=== PATIENT | male | born 1940 | race Caucasian/White ===

== ENCOUNTER → 2017-11-30 | Outpatient (CLI) | payer OTHER, MEDICARE | LOC: RAD 01:35 | DX: N64.4 Mastodynia (principal); R92.8 Other abnormal and inconclusive findings on diagnostic imaging of breast ==

== ENCOUNTER → 2019-03-20 | Outpatient (CLI) | payer OTHER, MEDICARE ==
[~2019-03-20] VITALS: Ht 188 cm; Wt 104.3 kg
[~2019-03-20] MED LIST: ASPIRIN300 MG PO; BRINTELLIX20 MG PO; LIPITOR40 MG PO; REMERON15 MG PO; SYNTHROID100 MC1 PO; XANAX 0.25 MG0.25 MG PO; ZOLPIDEM TARTRA10 MG PO
[2019-03-20 10:07] VITALS: BP 111/65
[2019-03-20 10:11] LABS: HEMATOCRIT 40.6 % (42.0-52.0); HEMOGLOBIN 13.7 gm/dL (14.0-18.0); MCH 32.1 pg (26.0-34.0); MCHC 33.8 g/dL (28.0-37.0); MCV 94.9 fL (80.0-100.0); RBC 4.28 mil/uL (4.50-6.00); RDW 14.2 % (10.5-14.5); WBC 5.3 thou/uL (4.0-11.0)
[2019-03-20 10:19] LABS: CALCIUM 9.4 mg/dL (8.5-10.1); CREATININE 1.3 mg/dL (0.7-1.3); POTASSIUM 4.3 mmol/L (3.5-5.1)
[2019-03-20 10:27] LABS: PROTIME 10.7 Seconds (9.3-11.4)
--- NOTE | 2019-03-20 16:38 | CATHLAB ---
[facility] [address] INVASIVE PROCEDURE REPORT Name: NATHAN HANEY Room #: REG CL [facility]#: [id number] ������������� Admission: 03/20/19 ������������� Attend Phys: Moise Mederos MD Discharge: ��� ������������� ��� Date of : 38 Date of Service: 03/20/19 1638 �� Report #: [id number] �������� ��������������������������������������������[id number] THIS REPORT FOR: //name// APPROVED REPORT Study performed: 03/20/2019 11:09:35 Patient Details The patient is a 79 year-old male Event Personnel Moise Mederos Composer Teaching Artist, Angela Harris RTR, HEAD OF CONSERVATION Monitor, Rashi Gomez RTR Monitor, Srinivasa Walls RTR Maiub, Mason Kim powder worker tnt Performed Left Heart Cath w/or w/o Coronaries [id number] [facility] Indication Dyspnea, Chest pain Risk Factors HypercholesterolemiaPhysical Activity, Coronary Artery Disease Procedure Narrative The Right Wrist^ was infiltrated with 1% Lidocaine subcutaneous anesthesia. A TRANSRADIAL SLENDER 6F GLIDESHEATH KIT #[id number] sheath was inserted into the Right Radial Artery^. Coronary angiography was performed using coronary diagnostic catheters. The right coronary system was accessed and visualized with a JR4 catheter. The left coronary system was accessed and visualized with a JL3.5 catheter. The left ventricle was accessed and visualized with a PIGTAIL catheter. The patient tolerated the procedure well and there were no complications associated with the procedure. There was no hematoma. Intraoperative Conscious Sedation Sedation start time: 1218 Case end Time: 1248 Fentanyl 25 mcg Versed 1.5 mg Fluoro Time: 6.20 minutes Dose: DAP 5995.40 cGycm2 629 mGy Contrast Type and Amount: Visipaque 45 ml [facility] [place] [place] [address] INVASIVE PROCEDURE REPORT Name: NATHAN HANEY Room #: REG [facility]#: [id number] ������������� Admission: 03/20/19 ������������� Attend Phys: Moise Mederos MD Discharge: ��� ������������� ��� Date of : 38 Date of Service: 03/20/19 1638 �� Report #: [id number] �������� ��������������������������������������������[id number] Coronary Angiography The patient's coronary anatomy is right dominant. Diagnostic Cath Left Main This is a large caliber vessel, appears to be patent with no flow-limiting lesions. LAD The proximal segment is mildly calcified with mild disease, 20%. The LAD traverses the anterior wall and terminates at the apex. Diagonal 1 This is a small-caliber vessel, patent with no flow-limiting lesions. Diagonal 2 This is a small-caliber vessel, patent with no flow-limiting lesions. Circumflex This is a moderate size caliber vessel, supplies one obtuse marginal artery. There is mild disease in the proximal segment, less than 20%. OM1 This is a moderate size caliber vessel, patent with no flow-limiting lesions. Right Coronary This is a moderate to large caliber vessel, dominant as it supplies the PDA. There is a moderate stenosis in the mid segment, 40-50%. R PDA This is a moderate size caliber vessel, patent with no flow-limiting lesions. RPLV This is a moderate size caliber vessel, patent with no flow-limiting lesions. Left Ventriculography The left ventricle is normal in size with normal contractility. The left ventricular ejection fraction is estimated to be 55-60%. Hemodynamics The aortic pressure is 95/57 mmHg with a mean of 73 mmHg. The left ventricular pressure is 88/8 mmHg with a mean of mmHg. The left ventricular end diastolic pressure is 18 mmHg. Conclusion 1. There is mild to moderate disease in the LAD, left circumflex artery and RCA. 2. There is normal LV systolic function. 3. Recommend aggressive risk factor management. ��������������������������������������������� <ELECTRONICALLY SIGNED> ���������������������������������������� By: Moise Mederos MD ��������������������������������������������� 03/20/19 1638 1638 1638 Moise Mederos MD /INF
--- NOTE | 2019-03-21 07:44 | EKG ---
[place] [address] [place] [address] ELECTROCARDIOGRAM REPORT Name: NATHAN HANEY [facility] #: [id number] ������������������ Admission: 03/20/19 ������������������ Attend Phys: Moise Mederos MD Discharge: ������������������ Date of : 38 Report #: [id number] ����������������������������������������������������������������� [id number] THIS REPORT FOR: //name// [facility] Test Date: 2019-03-20 Test Time: 10:00:39 Pat Name: NATHAN HANEY Department: Room: Gender: Human Resource Assistant: Candy BARTON : 1940 Requested By: Moise Mederos Order Number: [id number] MD: Chang Yi Measurements Intervals [place] Rate: 59 P: -14 VA: 229 QRS: 50 QRSD: 133 T: 28 QT: 427 QTc: 423 Interpretive Statements Sinus rhythm Prolonged VA interval Right bundle branch block Compared to ECG 08/18/2002 13:16:34 First degree AV block now present Right bundle-branch block now present Electronically Signed On 03-21-2019 7:44:03 CDT by Chang Yi [email or web address] ��������������������������������������������� <ELECTRONICALLY SIGNED> ���������������������������������������� By: Chang Yi MD, [facility] ��������������������������������������������� 03/21/19 0744 1000 1000 Chang Yi MD, [facility] /EPI
== END | disposition home or self-care (01) ==
LOC: CATH 09:30
PROVIDERS: Internal Medicine Cardiovascular Disease
DX: I25.10 Atherosclerotic heart disease of native coronary artery without angina pectoris (principal); E78.00 Pure hypercholesterolemia, unspecified; E78.5 Hyperlipidemia, unspecified; E03.9 Hypothyroidism, unspecified; F32.9 Major depressive disorder, single episode, unspecified; Z87.891 Personal history of nicotine dependence; Z85.46 Personal history of malignant neoplasm of prostate; Z86.718 Personal history of other venous thrombosis and embolism; Z79.01 Long term (current) use of anticoagulants; Z98.890 Other specified postprocedural states; Z79.899 Other long term (current) drug therapy; Z79.82 Long term (current) use of aspirin

== ENCOUNTER → 2019-05-02 | Outpatient (CLI) | payer OTHER, MEDICARE | LOC: RAD 13:55 | DX: J84.10 Pulmonary fibrosis, unspecified (principal) ==

== ENCOUNTER → 2019-05-09 | Outpatient (CLI) | payer OTHER, MEDICARE ==
[2019-05-09 09:34] LABS: CREATININE 1.3 mg/dL (0.7-1.3)
== END ==
LOC: CAT 08:52
PROVIDERS: Internal Medicine
DX: I25.10 Atherosclerotic heart disease of native coronary artery without angina pectoris (principal); C61 Malignant neoplasm of prostate

== ENCOUNTER → 2019-05-25 | Outpatient (CLI) | payer OTHER, MEDICARE ==
--- NOTE | 2019-05-25 09:58 | 2DMMODE ---
[facility] [place] [address] 2 D/M-MODE ECHOCARDIOGRAM Name: MEDINANATHAN THORNTONNTON Room #: REG CL [facility]#: [id number] Admission: 05/25/19 Attend Phys: Carlos Monterroso, Discharge: Date of : 38 Report #: [id number] THIS REPORT FOR: //name// APPROVED REPORT Study performed: 05/25/2019 08:31:13 EXAM: Comprehensive 2D, Doppler, and color-flow Echocardiogram Patient Location: Out-Patient Status: routine BSA: 2.35 HR: 62 bpm BP: 114/70 mmHg Rhythm: NSR Other Information Study Quality: Adequate Indications Cough, chest pain, short of breath. Hx: HLP. 2D Dimensions RVDd: 39.45 mm IVSd: 8.86 (7-11mm) LVDd: 43.75 mm PWd: 9.16 (7-11mm) Ascending Ao: 34.33 (22-36mm) LVDs: 30.46 (25-40mm) Aortic Root: 34.97 mm Volumes Left Atrial Volume (Systole) Single Plane 4CH: 42.04 mL Single Plane 2CH: 49.16 mL LA ESV Index: 21.00 mL/m2 Aortic Valve AoV Peak Samm.: 1.56 m/s AO Peak Gr.: 9.77 mmHg LVOT Max P.06 mmHg LVOT Max V: 1.42 m/s Mitral Valve E/A Ratio: 1.4 MV Decel. Time: 237.29 ms MV E Max Samm.: 0.76 m/s MV A Samm.: 0.54 m/s [facility] [address] [place] [address] 2 D/M-MODE ECHOCARDIOGRAM Name: MEDINANATHAN THORNTONNTON Room #: REG CL [facility]#: [id number] Admission: 05/25/19 Attend Phys: Carlos Monterroso, Discharge: Date of : 38 Report #: [id number] MV PHT: 68.81 ms IVRT: 83.04 ms Pulmonary Valve PV Peak Samm.: 0.85 m/s PV Peak Gr.: 2.86 mmHg Pulmonary Vein P Vein S: 0.56 m/s P Vein A: 0.32 m/s P Vein D: 0.55 m/s P Vein A Dur.: 143.0 msec P Vein S/D Ratio: 1.02 Tricuspid Valve TR Peak Samm.: 2.82 m/s RAP Estimate: 5.00 mmHg TR Peak Gr.: 32.00 mmHg PA Pressure: 37.00 mmHg Left Ventricle The left ventricle is normal size. There is normal LV segmental wall motion. There is normal left ventricular wall thickness. Left ventricular systolic function is normal. LVEF is 55-60%. The left ventricular diastolic function is normal. Right Ventricle The right ventricle is normal size. The right ventricular systolic function is normal. Atria The left atrium size is normal. Probable small PFO noted with color doppler. The right atrium size is normal. Aortic Valve The aortic valve is normal in structure. No aortic regurgitation is present. There is no aortic valvular stenosis. Mitral Valve The mitral valve is normal in structure. Trace mitral regurgitation. No evidence of mitral valve stenosis. Tricuspid Valve The tricuspid valve is normal in structure. Mild tricuspid regurgitation. Estimated PAP is 35-40mmHg. Pulmonic Valve The pulmonary valve is normal in structure. There is no pulmonic valvular regurgitation. [facility] [address] [place] [address] 2 D/M-MODE ECHOCARDIOGRAM Name: HANEYNATHAN POWELL Room #: REG CL [facility]#: [id number] Admission: 05/25/19 Attend Phys: Carlos Monterroso, Discharge: Date of : 38 Report #: [id number] Great Vessels The aortic root is normal in size. The ascending aorta is normal in size. IVC is normal in size and collapses >50% with inspiration. Pericardium There is no pericardial effusion. <Conclusion> Left ventricular systolic function is normal. There is normal LV segmental wall motion. LVEF is 55-60%. Probable small PFO noted with color doppler. The aortic valve is normal in structure. No aortic regurgitation or stenosis The mitral valve is normal in structure. Trace mitral regurgitation. Mild tricuspid regurgitation. Estimated pulmonary artery pressure of 35-40mmHg. There is no pericardial effusion. <ELECTRONICALLY SIGNED> By: Chang Yi MD, FACC 05/25/19957 7 7 Chang Yi MD, FACC /INF
== END ==
LOC: CV 08:10
DX: I36.1 Nonrheumatic tricuspid (valve) insufficiency (principal); E78.5 Hyperlipidemia, unspecified

== ENCOUNTER → 2019-06-01 | Outpatient (CLI) | payer OTHER, MEDICARE | LOC: MRI 06:52 | DX: M47.814 Spondylosis without myelopathy or radiculopathy, thoracic region (principal); M41.83 Other forms of scoliosis, cervicothoracic region; R35.0 Frequency of micturition ==

== ENCOUNTER → 2019-10-25 | Outpatient (CLI) | payer OTHER, MEDICARE ==
--- NOTE | 2019-10-25 09:38 | 2DMMODE ---
[facility] [place] [address] 2 D/M-MODE ECHOCARDIOGRAM Name: NATHAN HANEY Room #: REG [facility].#: [id number] Admission: 10/25/19 Attend Phys: Carlos Monterroso MD Discharge: Date of : 38 Report #: [id number] THIS REPORT FOR: cc: Julien Goncalves MD, Stanley P. MD Lammoglia, Francisco J. MD ~ APPROVED REPORT Study performed: 10/25/2019 08:42:56 EXAM: Comprehensive 2D, Doppler, and color-flow Echocardiogram Patient Location: Echo lab Status: routine BSA: 2.35 HR: 69 bpm BP: 120/70 mmHg Rhythm: NSR Other Information Study Quality: Adequate Risk Factors: Cardiac Risk Factors: Hyperlipidemia Indications Pulmonary Hypertension 2D Dimensions IVSd: 9.68 (7-11mm) LVOT Diam: 21.00 (18-24mm) LVDd: 45.26 mm PWd: 9.70 (7-11mm) Ascending Ao: 33.55 (22-36mm) LVDs: 32.28 (25-40mm) Aortic Root: 32.62 mm LV Single Plane 4CH: 57.68 % LV Single Plane 2CH: 51.98 % Volumes Left Atrial Volume (Systole) Single Plane 4CH: 53.81 mL Single Plane 2CH: 67.38 mL LA ESV Index: 29.00 mL/m2 Aortic Valve AoV Peak Samm.: 1.20 m/s [facility] [address] [place] [address] 2 D/M-MODE ECHOCARDIOGRAM Name: MEDINANATHAN SHERRY Room #: REG [facility].#: [id number] Admission: 10/25/19 Attend Phys: Carlos Monterroso, Discharge: Date of : 38 Report #: [id number] AO Peak Gr.: 5.78 mmHg LVOT Max P.79 mmHg LVOT Max V: 0.83 m/s CHAYA Vmax: 2.44 cm2 Mitral Valve E/A Ratio: 1.0 MV Decel. Time: 311.93 ms MV E Max Samm.: 0.62 m/s MV A Samm.: 0.64 m/s MV PHT: 90.46 ms IVRT: 51.90 ms TDI E/Lateral E': 6.20 E/Medial E': 8.86 Medial E' Samm.: 0.07 m/s Lateral E' Samm.: 0.10 m/s Pulmonary Valve PV Peak Samm.: 0.86 m/s PV Peak Gr.: 2.99 mmHg Pulmonary Vein P Vein S: 0.53 m/s P Vein A: 0.30 m/s P Vein D: 0.50 m/s P Vein A Dur.: 103.8 msec P Vein S/D Ratio: 1.06 Tricuspid Valve TR Peak Samm.: 2.81 m/s RAP Estimate: 7.00 mmHg TR Peak Gr.: 31.65 mmHg PA Pressure: 39.00 mmHg Left Ventricle The left ventricle is normal size. There is normal LV segmental wall motion. There is normal left ventricular wall thickness. Left ventricular systolic function is normal. The left ventricular ejection fraction is within the normal range. LVEF is 55-60%. Moderate diastolic dysfunction is present (pseudonormal filling). Right Ventricle The right ventricle is normal size. The right ventricular systolic function is normal. Atria The left atrium size is normal. The right atrium size is normal. [facility] [address] [place] [address] 2 D/M-MODE ECHOCARDIOGRAM Name: NATHAN HANEY Room #: REG [facility]#: [id number] Admission: 10/25/19 Attend Phys: Carlos Monterroso, Discharge: Date of : 38 Report #: [id number] Aortic Valve The aortic valve is normal in structure. No aortic regurgitation is present. There is no aortic valvular stenosis. Mitral Valve The mitral valve is normal in structure. Trace mitral regurgitation. No evidence of mitral valve stenosis. Tricuspid Valve The tricuspid valve is normal in structure. Mild tricuspid regurgitation. Pulmonary artery pressure is 39 mmHg. Pulmonic Valve The pulmonary valve is normal in structure. There is no pulmonic valvular regurgitation. Great Vessels The aortic root is normal in size. The ascending aorta is normal in size. IVC is normal in size and collapses >50% with inspiration. Pericardium There is no pericardial effusion. <Conclusion> The left ventricle is normal size. LVEF is 55-60%. The aortic valve is normal in structure. The mitral valve is normal in structure. Trace mitral regurgitation. The tricuspid valve is normal in structure. Mild tricuspid regurgitation. Pulmonary artery pressure is 39 mmHg. The pulmonary valve is normal in structure. There is no pericardial effusion. <ELECTRONICALLY SIGNED> By: Chava West MD 10/25/1938 6 Chava West MD /INF
== END ==
LOC: CAT 08:15 → CV 17:02
DX: I36.1 Nonrheumatic tricuspid (valve) insufficiency (principal); I25.10 Atherosclerotic heart disease of native coronary artery without angina pectoris; I70.0 Atherosclerosis of aorta; J98.4 Other disorders of lung

== ENCOUNTER → 2020-01-09 | Outpatient (CLI) | payer OTHER, MEDICARE | LOC: SJCVC 10:21 | DX: I44.0 Atrioventricular block, first degree (principal); I45.10 Unspecified right bundle-branch block; R94.31 Abnormal electrocardiogram [ECG] [EKG]; I25.10 Atherosclerotic heart disease of native coronary artery without angina pectoris; E78.00 Pure hypercholesterolemia, unspecified; D68.59 Other primary thrombophilia; R60.9 Edema, unspecified; E03.9 Hypothyroidism, unspecified; E78.5 Hyperlipidemia, unspecified; Z82.49 Family history of ischemic heart disease and other diseases of the circulatory system; Z86.718 Personal history of other venous thrombosis and embolism; Z79.899 Other long term (current) drug therapy; Z79.82 Long term (current) use of aspirin; Z87.891 Personal history of nicotine dependence ==

== ENCOUNTER → 2020-06-23 | Outpatient (CLI) | payer OTHER, MEDICARE | LOC: SJCVCIMAG 08:17 | PROVIDERS: ATTEND Internal Medicine Cardiovascular Disease | DX: I44.0 Atrioventricular block, first degree (principal); I49.3 Ventricular premature depolarization; I25.10 Atherosclerotic heart disease of native coronary artery without angina pectoris; E78.5 Hyperlipidemia, unspecified; Z79.899 Other long term (current) drug therapy; Z87.891 Personal history of nicotine dependence ==

== ENCOUNTER → 2020-10-29 | Outpatient (CLI) | payer OTHER, MEDICARE ==
--- NOTE | 2020-10-29 10:59 | 2DMMODE ---
[facility] [place] [address] 2 D/M-MODE ECHOCARDIOGRAM Name: NATHAN HANEY Room #: REG [facility] Gayathri.#: [id number] Admission: 10/29/20 Attend Phys: Carlos Monterroso MD Discharge: Date of : 38 Report #: [id number] THIS REPORT FOR: cc: Julien Goncalves MD, Stanley P. MD Lundgren, Craig H. MD [facility] ~ APPROVED REPORT Study performed: 10/29/2020 08:21:07 EXAM: Comprehensive 2D, Doppler, and color-flow Echocardiogram Patient Location: Out-Patient Room #: 2 Status: routine BSA: 2.35 HR: 77 bpm BP: 108/64 mmHg Rhythm: NSR Other Information Study Quality: Adequate Indications Dyspnea 2D Dimensions RVDd: 38.88 mm IVSd: 8.83 (7-11mm) LVOT Diam: 18.94 (18-24mm) LVDd: 47.71 mm PWd: 9.23 (7-11mm) Ascending Ao: 33.87 (22-36mm) LVDs: 29.68 (25-40mm) Left Atrium: 39.20 (27-40mm) Aortic Root: 33.55 mm IVC: 14.00 mm Volumes Left Atrial Volume (Systole) Single Plane 4CH: 32.76 mL Single Plane 2CH: 26.43 mL LA ESV Index: 14.00 mL/m2 Aortic Valve AoV Peak Samm.: 1.41 m/s AO Peak Gr.: 7.95 mmHg LVOT Max P.69 mmHg LVOT Max V: 1.19 m/s CHAYA Vmax: 2.38 cm2 [facility] [address] [address] 2 D/M-MODE ECHOCARDIOGRAM Name: NATHAN HANEY Room #: REG [facility]#: [id number] Admission: 10/29/20 Attend Phys: Carlos Monterroso, Discharge: Date of : 38 Report #: [id number] Mitral Valve E/A Ratio: 0.7 MV Decel. Time: 308.99 ms MV E Max Samm.: 0.59 m/s MV A Samm.: 0.90 m/s MV PHT: 89.61 ms IVRT: 115.34 ms Pulmonary Valve PV Peak Samm.: 0.96 m/s PV Peak Gr.: 3.66 mmHg Pulmonary Vein P Vein S: 0.50 m/s P Vein A: 0.31 m/s P Vein D: 0.32 m/s P Vein A Dur.: 78.4 msec P Vein S/D Ratio: 1.56 Tricuspid Valve TR Peak Samm.: 2.73 m/s TR Peak Gr.: 29.78 mmHg PA Pressure: 35.00 mmHg Left Ventricle The left ventricle is normal size. There is normal LV segmental wall motion. There is normal left ventricular wall thickness. The left ventricular systolic function is normal. The left ventricular ejection fraction is within the normal range. LVEF 60-65%. Mild diastolic dysfunction Right Ventricle The right ventricle is normal size. The right ventricular systolic function is normal. Atria The left atrium size is normal. The right atrium size is normal. Aortic Valve The aortic valve is normal in structure. No aortic regurgitation is present. There is no aortic valvular stenosis. Mitral Valve The mitral valve is normal in structure. Trace mitral regurgitation. No evidence of mitral valve stenosis. Tricuspid Valve [facility] [address] [place] [address] 2 D/M-MODE ECHOCARDIOGRAM Name: HANEYNATHAN POWELL Room #: REG [id number] Admission: 10/29/20 Attend Phys: Carlos Monterroso, Discharge: Date of : 38 Report #: [id number] The tricuspid valve is normal in structure. There is trace tricuspid regurgitation. Estimated PAP 35 mmHg. There is mild pulmonary hypertension. Pulmonic Valve The pulmonary valve is normal in structure. There is no pulmonic valvular regurgitation. Great Vessels The aortic root is normal in size. IVC is normal in size and collapses >50% with inspiration. Pericardium There is no pericardial effusion. <Conclusion> The left ventricular systolic function is normal. There is normal LV segmental wall motion. LVEF 60-65%. Mild diastolic dysfunction The aortic valve is normal in structure. No aortic regurgitation or stenosis. The mitral valve is normal in structure. Trace mitral regurgitation. There is trace tricuspid regurgitation. Estimated pulmonary artery pressure of 35 mmHg. There is no pericardial effusion. <ELECTRONICALLY SIGNED> By: Chang Yi MD, FACC 10/29/20 1058 1058 1058 Chang Yi MD, FACC /INF
== END ==
LOC: CV 09:13
PROVIDERS: ATTEND Internal Medicine
DX: I27.20 Pulmonary hypertension, unspecified (principal); R06.00 Dyspnea, unspecified

== ENCOUNTER → 2020-12-24 | Outpatient (CLI) | payer OTHER, MEDICARE | LOC: SJCVCIMAG 09:26 | PROVIDERS: ATTEND Internal Medicine Cardiovascular Disease | DX: R94.31 Abnormal electrocardiogram [ECG] [EKG] (principal); I65.23 Occlusion and stenosis of bilateral carotid arteries; I44.0 Atrioventricular block, first degree; I45.10 Unspecified right bundle-branch block; I25.2 Old myocardial infarction; R93.1 Abnormal findings on diagnostic imaging of heart and coronary circulation; E78.00 Pure hypercholesterolemia, unspecified; R60.9 Edema, unspecified; D68.59 Other primary thrombophilia; I25.10 Atherosclerotic heart disease of native coronary artery without angina pectoris; E03.9 Hypothyroidism, unspecified; F32.9 Major depressive disorder, single episode, unspecified; Z79.899 Other long term (current) drug therapy; Z86.718 Personal history of other venous thrombosis and embolism; E78.5 Hyperlipidemia, unspecified; Z85.46 Personal history of malignant neoplasm of prostate; Z87.891 Personal history of nicotine dependence; Z72.89 Other problems related to lifestyle ==